=== PATIENT | female | born 1985 | race Caucasian/White ===

== ENCOUNTER → 2018-12-05 | Day surgery (SDC) | payer BC ==
[2018-12-04 16:04] LABS: BASOPHILS % 0.4 % (0.0-1.0); EOSINOPHILS # (AUTO) 0.1 (0.0-0.4); EOSINOPHILS % 1.1 % (0.0-6.0); HEMATOCRIT 39.4 % (34.2-44.1); HEMOGLOBIN 13.6 g/dL (12.0-16.0); LYMPHOCYTES % 31.2 % (18.0-39.1); MEAN CORPUSCULAR HEMOGLOBIN 32.1 pg (28-32); MEAN CORPUSCULAR HGB CONC 34.5 g/dL (31-35); MEAN CORPUSCULAR VOLUME 92.9 fL (81-99); MONOCYTES # (AUTO) 0.9 (0.2-0.8); NEUTROPHILS # (AUTO) 5.6 (2.1-6.9); PLATELET COUNT 387 x10e3/uL (140-360); RED BLOOD COUNT 4.24 x10e6/uL (3.6-5.1); RED CELL DISTRIBUTION WIDTH 12.1 % (11.7-14.4)
[2018-12-04 16:36] LABS: ANION GAP 14.7 mmol/L (8-16); BLOOD UREA NITROGEN 9 mg/dL (7-26); BUN/CREATININE RATIO 12 (6-25); CALCIUM 10.1 mg/dL (8.4-10.2); CARBON DIOXIDE 25 mmol/L (22-29); CHLORIDE 100 mmol/L (98-107); CREATININE, SERUM 0.78 mg/dL (0.57-1.11); EST GLOMERULAR FILTRATION RATE > 60 ML/MIN (60-); GLUCOSE 86 mg/dL (74-118); POTASSIUM 3.7 mmol/L (3.5-5.1); SODIUM 136 mmol/L (136-145)
--- NOTE | 2018-12-04 16:44 | Diagnostic Imaging Report ---
EXAMINATION: CHEST 2 VIEWS INDICATION: Pre-op. COMPARISON: None FINDINGS: TUBES and LINES: None. LUNGS: Lungs are moderately inflated. Lungs are clear. There is no evidence of pneumonia or pulmonary edema. PLEURA: No pleural effusion or pneumothorax. HEART AND MEDIASTINUM: The cardiomediastinal silhouette is unremarkable. BONES AND SOFT TISSUES: No acute osseous abnormality. Partially seen cervical spine fixation hardware. UPPER ABDOMEN: No free air under the diaphragm. IMPRESSION: No acute radiographic abnormality. Signed by: Dr. Lori Vences MD on 12/04/2018 4:41 PM
[~2018-12-05] MED LIST: ACETAMINOPHEN 1000 MG/100 ML 100 ML IV ONE; ADDERALL 20 MG20 MG PO; ADDERALL XR 3030 MG; BACLOFEN10 MG PO; BIRTH CONTROL; BUPIVACAINE HCL 0.5% INJ 30 ML VIAL INJ ONE; CLINDAMYCIN PHOS 900MG/ 50ML 50 ML IV ONE; DEXAMETHASONE SOD PHOS INJ 4 MG/ML VIAL ONE; DIFLUNISAL500 MG; FENTANYL CITRATE/PF 100MCG/2 ML INJ ONE; IBUPROFEN 800MG/ 250ML 250 ML IV ONE; LIDOCAINE HCL 2% LOCAL INJ 5 ML SDV VIAL INJ ONE; MEDROL4 MG/DOSE-; MIDAZOLAM HCL 2 MG/2 ML VIAL ONE; NAPROSYN500 MG; NEOMYCIN/POLYMYX/BACITR OINT 0.9 GM PKT ONE; ONDANSETRON HCL INJ 2MG/ML 2ML 2 MG/ML VIAL ONE; PHENTERMINE H37.5 MG PO; PROPOFOL IV EMULSION 10 MG/ML 20 ML VIAL ONE; SEVOFLURANE INHAL SOLN 250 ML PEN BTL ONE; TYLENOL WITH C1 EACH PO
--- OUTSIDE RECORDS SUMMARY | 2018-12-05 08:05 | XMS REPORT ---
Author Author [facility] Address Unknown Phone Unavailable Care Team Providers Care Video Engineer Name Role Phone LESLIE HARRIS Unavailable Unavailable Problems This patient has no known problems. Allergies, Adverse Reactions, Alerts This patient has no known allergies or adverse reactions. Medications This patient has no known medications. Results Test Description Test Time Test Comments Text Results Atomic Results Result Comments CHEST 2 VIEWS 2018-12-04 16:39:00 [facility] [address] [address] Patient Name: HELENA THORNE MR #: [id number] : 1985 Age/Sex: 33/F Req #: [id number] Adm Physician: Ordered by: LESLIE HARRIS DPM Report #: [id number] Location: OR Room/Bed: Procedure: [id number] DX/CHEST 2 VIEWS Exam Date: Exam Time: REPORT STATUS: Signed EXAMINATION: CHEST 2 VIEWS INDICATION: Pre-op. COMPARISON: None FINDINGS: TUBES and LINES: None. LUNGS: Lungs are moderately inflated. Lungs are clear. There is no evidence of pneumonia or pulmonary edema. PLEURA: No pleural effusion or pneumothorax. HEART AND MEDIASTINUM: The cardiomediastinal silhouette is unremarkable. BONES AND SOFT TISSUES: No acute osseous abnormality. Partially seen cervical spine fixation hardware. UPPER ABDOMEN: No free air under the diaphragm. IMPRESSION: No acute radiographic abnormality. Signed by: Dr. Mey Vences MD on 12/04/2018 4:41 PM Dictated By: MEY VENCES MD [id number] Transcribed By: CALE on 12/04/18 164 COPY TO: LESLIE HARRIS DPM
--- OUTSIDE RECORDS SUMMARY | 2018-12-05 08:05 | XMS REPORT | Clinical Summary ---
Author Author [facility] Address Unknown Phone Unavailable Care Team Providers Care Engineer And Geologist Name Role Phone Jamel Ortiz MD PCP Allergies Comments Active Allergy Reactions Severity Noted Date Cephalexin Hives Low 06/12/2018 Medications End Date Status Medication Sig Dispensed Refills Start Date Active etonogestrel-ethinyl Insert 3 each 1 estradiol (NUVARING) vaginally and 8 0.12-0.015 mg/24 hr leave in vaginal ring place for 3 consecutive weeks, then remove for 1 week. Active ADDERALL XR 20 mg 24 hr 0 capsule 8 Active phentermine 37.5 MG Take 37.5 mg 0 capsule by mouth. Active Problems No known active problems Encounters Care Team Description Date Type Specialty Lauryn Doss RN 06/23/2018 Telephone Obstetrics and Gynecology Karen Ferrari MA 06/23/2018 Telephone Obstetrics and Gynecology Solange Mendez MD Well woman exam (Primary Dx); Cervical cancer screening; VD (venereal disease) screening; Wellness examination 06/16/2018 Office Visit Obstetrics and Gynecology Solange Mendez MD 05/21/2018 Refill Obstetrics and Gynecology Lauryn Doss RN 12/05/2017 Telephone Obstetrics and Gynecology after 12/04/2017 Family History Medical History Relation Name Comments Colon cancer Maternal Grandfather Breast cancer Maternal Grandmother Hypertension Maternal Grandmother Relation Name Status Comments Maternal Grandfather Maternal Grandmother Social History Date Tobacco Use Types Packs/Day Years Used Never Smoker Smokeless Tobacco: Never Used Alcohol Use Drinks/Week oz/Week Comments No Alcohol Habits Answer Date Recorded How often do you have a drink containing alcohol? Never 06/16/2018 How many drinks containing alcohol do you have on Not asked a typical day when you are drinking? How often do you have six or more drinks on one Not asked occasion? Sex Assigned at Date Recorded Not on file Industry Job Start Date Occupation Not on file Not on file Not on file Travel End Travel History Travel Start No recent travel history available. Last Filed Vital Signs Time Taken Vital Sign Reading 06/16/2018 1:52 PM EXTRACTOR PLANT OPERATOR Blood Pressure 124/85 06/16/2018 1:52 PM EXTR[employer]OR [employer]ANT OPERATOR Pulse 77 - Temperature - - Respiratory Rate - - Oxygen Saturation - - Inhaled Oxygen - Concentration 06/16/2018 1:52 PM EXTR[employer]OR PLANT OPERATOR Weight 73 kg (161 lb) 06/16/2018 1:52 PM EXTRACTOR PLANT OPERATOR Height 160 cm (5' 3") 06/16/2018 1:52 PM EXTR[employer]OR PLANT OPERATOR Body Mass Index 28.52 Plan of Treatment Health Maintenance Due Date Last Done Comments CERVICAL CANCER SCREENING 2005 INFLUENZA VACCINE 03/05/2019 Procedures Comments Procedure Name Priority Date/Time Associated Diagnosis TRICHOMONAS VAGINALIS Routine 06/16/2018 RNA, QUALITATIVE, TMA, 2:20 PM EXTRACTOR PLANT OPERATOR PAP VIAL CHLAMYDIA/N. GONORRHOEAE Routine 06/16/2018 RNA, TMA 2:20 PM EXTRACTOR PLANT OPERATOR HPV MRNA E6/E7 Routine 06/16/2018 2:20 PM EXTRACTOR PLANT OPERATOR THINPREP TIS PAP Routine 06/16/2018 2:20 PM EXTRACTOR PLANT OPERATOR after 12/04/2017 Results * Trichomonas vaginalis RNA, Qualitative, TMA, PAP Vial (06/16/2018 2:20 PM EXTRACTOR PLANT OPERATOR) [facility] NOT DETECTED NOT DETECTED [facility] tma, pap vial Comment: [facility] This test was performed using the APTIMA(R) Trichomonas vaginalis assay (Gen-Probe(R)). For more information on this test, go to: http://education.[employer].com/faq/Trichomonastma The performance characteristics of this assay when used to test SurePath(R) specimens have been determined by [facility]. Performance characteristics refer to the analytical performance of this test. Resulting Agency Comment Performing Organization Information: Site ID: [id number] Name: [facility] Address: [address] [place] [phone] Director: Jessica Bishop Performing Organization Address City/State/Zipcode Phone Number [facility] [place] [phone] * HPV mRNA E6/E7 (06/16/2018 2:20 PM EXTRACTOR PLANT OPERATOR) HPV mRNA e6/e7 Detected (A) Not Detected [facility] Comment: [facility] This test was performed using the APTIMA HPV Assay ([employer] This assay detects E6/E7 viral messenger RNA (mRNA) from 14 high-risk HPV types (16,18,31,33,35,39,45,51,52,56 ,58,59,66,68). The analytical performance characteristics of this assay have been determined by [facility]. The modifications have not been cleared or approved by the FDA. This assay has been validated pursuant to the CLIA regulations and is used for clinical purposes. Resulting Agency Comment Performing Organization Information: Site ID: [id number] Name: [facility] Address: [address] [place] [phone] Director: Jessica Bishop Performing Organization Address City/[facility] [place]ode [place] [address] * CHLAMYDIA/N. GONORRHOEAE RNA, [facility] (06/16/2018 2:20 PM EXTRACTOR PLANT OPERATOR) Chlamydia trachomatis NOT DETECTED NOT DETECTED [facility] RNA, [facility] Neisseria gonorrhoeae NOT DETECTED NOT DETECTED [facility] RNA, [facility] (Always message) Comment: [facility] This test was performed using [facility] the APTIMA COMBO2 Assay ([employer] The analytical performance characteristics of this assay, when used to test SurePath specimens have been determined by [facility]. Resulting Agency Comment Performing Organization Information: Site ID: [id number] Name: [facility] Address: [address] [place] [phone] Director: Jessica Bishop Performing Organization Address [facility] Centercode Phone Number [facility] [address] [phone] * THINPREP TIS PAP (06/16/2018 2:20 PM EXTRACTOR PLANT OPERATOR) Clinical information None given [facility] Date of last menstrual NONE GIVEN [facility] Prev. pap: NONE GIVEN [facility]ONE Prev. bx: NONE GIVEN [facility]ONE Source None given [facility] Statement of adequacy Comment: [facility] Satisfactory for evaluation. [facility] Endocervical/transformation zone component absent. Age and/or menstrual status not provided Interpretation/result: Comment: Negative for [facility] intraepithelial lesion or [facility] malignancy. Comment Comment: [facility] This Pap test has been [facility] evaluated with computer assisted technology. Elastic Cutter Comment: [facility] AMT, CT(ASCP) [facility] CT screening location: [address], [place] [address] Review physician practice administrator Comment: [facility] PMT, CT(ASCP) [facility]ST[facility] CT screening location: [place] [address] Comment Comment: [facility] EXPLANATORY NOTE: [facility] The Pap is a screening test for cervical cancer. It is not a diagnostic test and is subject to false negative and false positive results. It is most reliable when a satisfactory sample, regularly obtained, is submitted with relevant clinical findings and history, and when the Pap result is evaluated along with historic and current clinical information. Resulting Agency Comment Performing Organization Information: Site ID: [id number] Name: [facility] Address: [address] [place], [place] [phone] Director: Jessica Bishop Performing Organization Address City/State/[place]code [place] [address] after 12/04/2017 Insurance Payer Benefit Subscriber ID Type Phone Address Plan / Group BCBS BCBS xxxxxxxxxxxx PPO CHOICE PPO/FEDERA L EMPL PPO Advance Directives Patient has advance care planning documents on file. For more information, oliver peralta contact: Xander Gardiner [address] [place] [address]
[2018-12-05 11:15] VITALS: BP 110/77
--- NOTE | 2018-12-05 14:58 | Operative Report ---
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 TITLE OF OPERATION: Excision of neuroma 3rd intermetatarsal space of the left foot. ANESTHESIA: General endotracheal. HEMOSTASIS: A left thigh tourniquet at 350 mmHg. PROCEDURE IN DETAIL: The patient was taken to the operating room in a mildly sedated state and placed upon the operating table in supine position. Following induction of general anesthetic, the left lower extremity was elevated to 60 degrees to exsanguinate before inflating the pneumatic thigh tourniquet at 350 mmHg for good hemostasis. Left lower extremity was placed upon the operating table prior to performing following procedure. Procedure #1 is the neuroma 3rd intermetatarsal space of the left foot. An approximate 4 cm dorsal linear incision was placed across the dorsal aspect of the 3rd intermetatarsal space of the left foot. The incision was deepened via sharp and blunt dissection down to the level of dorsal capsular structure. All superficial bleeders were electrocoagulated. The 3rd intermetatarsal space was entered and immediately a very large knotted neuroma was noted in the distal segment of the interspace. The transverse intermetatarsal ligament was sectioned in order to reveal the entirety of the intermetatarsal space nerve. The enlargement was noted to be distal to the ligament at the level of the met heads. This was dissected free to its distal-most extensions into the 3rd and 4th digits, sectioned sharply at its distal extensions and dissected further plantarly to ensure removal of all neuroma material. This having been accomplished, it was traced backwards to a segment which protracted proximal to the transverse intermetatarsal ligament. This having been accomplished, the area was once again irrigated with copious amounts of sterile saline solution. The neuroma itself was sent to pathology for further evaluation. Any further suspicious material was removed or debrided and the area was irrigated and electrocautery performed to the base to prevent bleeding. The appropriate mildly compressive dressings were applied after closure with 3-0 Vicryl and 4-0 nylon. These dressings were allowed to stabilize her foot within the posterior splint or CAM walker. The patient tolerated both anesthetic and procedure very well and is to return to see me within 3-5 days postoperatively for further evaluation and sterile re-dress. Release of the pneumatic thigh tourniquet showed a normal hyperemic flush to all digits of the left foot. GAMALIEL Neumann/PACHECO /[id number]
== END | disposition home or self-care (01) ==
LOC: OR 08:00
PROVIDERS: ATTEND Podiatrist Foot Surgery
DX: G57.62 Lesion of plantar nerve, left lower limb (principal); I45.10 Unspecified right bundle-branch block; Z88.1 Allergy status to other antibiotic agents; Z01.810 Encounter for preprocedural cardiovascular examination; Z01.812 Encounter for preprocedural laboratory examination; Z01.818 Encounter for other preprocedural examination
CPT/HCPCS: 28080; 36415; 71046; 80048; 81025; 85025; 88304; 93005; J0131; J1100; J2001; J2250; J2405; J2704